=== PATIENT | male | born 1960 | race Caucasian/White ===

== ENCOUNTER → 2019-10-12 | Day surgery (SDC) | payer OTHER ==
[~2019-10-12] MED LIST: CEFTRIAXONE SOD 1 GM/NS 50 ML 50 ML IV ONE; DEXAMETHASONE SOD PHOS INJ 4 MG/ML VIAL ONE; FENTANYL CITRATE/PF 100MCG/2 ML INJ ONE; KETOROLAC TROMETHAMINE 30 MG/ML VIAL ONE; LIDOCAINE HCL 1% LOCAL INJ 20 ML VIAL ONE; ONDANSETRON HCL INJ 2MG/ML 2ML 2 MG/ML VIAL ONE; PROPOFOL IV EMULSION 10 MG/ML 20 ML VIAL ONE; SEVOFLURANE INHAL SOLN 250 ML PEN BTL ONE
[2019-10-12 07:28] LABS: BASOPHILS % 0.9 % (0.0-1.0); EOSINOPHILS # (AUTO) 0.2 (0.0-0.4); EOSINOPHILS % 5.1 % (0.0-6.0); HEMATOCRIT 44.7 % (38.2-49.6); LYMPHOCYTES # (AUTO) 1.1 (1.0-3.2); LYMPHOCYTES % 25.8 % (18.0-39.1); MEAN CORPUSCULAR HEMOGLOBIN 30.6 pg (28-32); MEAN CORPUSCULAR HGB CONC 33.6 g/dL (31-35); MEAN CORPUSCULAR VOLUME 91.2 fL (81-99); MONOCYTES # (AUTO) 0.4 (0.2-0.8); MONOCYTES % 9.7 % (4.4-11.3); NEUTROPHILS # (AUTO) 2.5 (2.1-6.9); NEUTROPHILS % 58.3 % (38.7-80.0); PLATELET COUNT 200 x10e3/uL (140-360); RED CELL DISTRIBUTION WIDTH 12.2 % (11.7-14.4)
[2019-10-12 07:45] LABS: ANION GAP 8.6 mmol/L (8-16); BLOOD UREA NITROGEN 17 mg/dL (7-26); BUN/CREATININE RATIO 17 (6-25); CARBON DIOXIDE 28 mmol/L (22-29); CHLORIDE 107 mmol/L (98-107); CREATININE, SERUM 1.02 mg/dL (0.72-1.25); EST GLOMERULAR FILTRATION RATE > 60 ML/MIN (60-); GLUCOSE 90 mg/dL (74-118); POTASSIUM 4.6 mmol/L (3.5-5.1); SODIUM 139 mmol/L (136-145)
--- NOTE | 2019-10-12 08:26 | Diagnostic Imaging Report ---
EXAMINATION: CHEST 2 VIEWS INDICATION: Preop for hydrocele COMPARISON: None FINDINGS: TUBES and LINES: None. LUNGS: Normal lung volumes. Lungs are clear. No consolidations. PLEURA: No pleural effusion or pneumothorax. HEART AND MEDIASTINUM: The cardiomediastinal silhouette is unremarkable. BONES AND SOFT TISSUES: Degenerative changes in the spine and shoulders. Soft tissues are unremarkable. UPPER ABDOMEN: No free air under the diaphragm. IMPRESSION: No acute thoracic radiographic abnormality. Signed by: Cj Aleman DO on 10/12/2019 8:23 AM
[2019-10-12 11:10] VITALS: BP 147/95
--- NOTE | 2019-10-15 11:10 | Operative Report ---
DATE OF PROCEDURE: 10/12/2019 SURGEON: Bobby Lamb MD PREOPERATIVE DIAGNOSES: 1. Bladder outlet obstruction. 2. Left hydrocele. POSTOPERATIVE DIAGNOSES: 1. Bladder outlet obstruction. 2. Left hydrocele. PROCEDURES PERFORMED: 1. Flexible cystoscopy. 2. Left hydrocelectomy. ANESTHESIA: General anesthesia. ESTIMATED BLOOD LOSS: Minimal. INDICATIONS: Mr. Ge Jordan is a 59-year-old gentleman with a long history of bladder outlet obstructive type symptoms, which is not responding well to alpha blockers. He also presents with a moderate-sized left hydrocele which is increasing in size and bothersome. He now presents for diagnosis of the 1st problem and management of the 2nd problem. PROCEDURE IN DETAIL: The patient was brought to the operating room, placed in supine position and after initiation of general anesthesia, a flexible cystoscopy was performed. 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 This was dilated with the scope. The prostate revealed evidence of trilobar hyperplasia with moderate elevation of the median bar. The bladder was entered without difficulty. Upon entrance into the bladder, the ureteral orifices were in normal anatomical position and produced clear efflux. There were no mucosal lesions identified. There were grade 1-2 trabeculations noted in the bladder. The cystoscope was then removed. A horizontal incision was made over the left hemiscrotum after the patient was appropriately prepped and draped. Dissection was carried out through the layers of the scrotum and the tunica vaginalis was entered. Approximately 150-200 cc of straw-colored fluid was obtained. The testicle was removed from the field was everted from its tunics and the cut edges of the tunica vaginalis was fulgurated using the electrocautery device. The edge was then oversewn using a running chromic suture. The appendix epididymis and appendix testis were both removed using the electrocautery device. The testicle was returned to its normal anatomical position in the hemiscrotum and a quarter-inch Anca drain was placed from the dependent portion of the scrotum and noted to allow adequate drainage. This was secured to the skin using a chromic suture. The scrotum was then closed in layers, the skin being closed with a running baseball stitch. The wound was then cleaned and dried and covered with Telfa, fluffs, and placed in a scrotal support. Anesthesia was reversed and the patient was transferred to a bed and taken to the postanesthesia care unit in good condition. Of note, the needle and instrument count were correct at the conclusion of the case. MD AMERICA Kim/SHLOMO /[id number]
== END | disposition home or self-care (01) ==
LOC: OR 06:47
PROVIDERS: ATTEND Urology
DX: N43.3 Hydrocele, unspecified (principal); N32.0 Bladder-neck obstruction; N35.912 Unspecified bulbous urethral stricture, male; N32.89 Other specified disorders of bladder; N40.0 Benign prostatic hyperplasia without lower urinary tract symptoms
CPT/HCPCS: 36415; 52281; 55040; 71046; 80048; 85025; 93005; J0696; J1100; J1885; J2001; J2405; J2704; J3010